=== PATIENT | female | born 1995 | race American Indian/Alaskan Native ===

== ENCOUNTER 2018-06-30 13:27 | Outpatient (CLI) | payer MEDICAID, OTHER ==
[2018-06-30] MEDS ORDERED: LACTATED RINGERS 500 ML IV ONE (14:05)
[2018-06-30 14:27] VITALS: BP 106/57
[2018-06-30 15:05] LABS: Bilirubin,Urine NEG (Negative); Blood,Urine NEG (Negative); Color,Urine Yellow (Yellow); Mucus,Urine FEW /HPF; Protein,Urine <15 mg/dL mg/dL (Negative); Urobilinogen,Urine < 2.0 mg/dL (<2.0); WBC,Urine < 1.0 /HPF (0.0-6.0)
[2018-06-30 15:27] LABS: RBC,Urine < 1.0 /HPF (0.0-6.0)
== END 2018-06-30 16:00 | disposition home or self-care (01) ==
LOC: LD 13:27 → TRG 13:27
PROVIDERS: ATTEND Obstetrics & Gynecology
DX: O47.03 False labor before 37 completed weeks of gestation, third trimester (principal); Z3A.31 31 weeks gestation of pregnancy
CPT/HCPCS: 59025; 81001; 96360; J7120